=== PATIENT | male | born 1970 | race Caucasian/White ===

== ENCOUNTER 2024-03-12 19:01 | Emergency (ER) | payer OTHER, SELFPAY ==
--- NOTE | 2024-03-12 19:05 | ED.URI ---
HPI - URI/Sore Throat General Chief Complaint: Upper Respiratory Infection Stated Complaint: Sinus Time Seen by Provider: 03/12/24 19:43 Source: patient and RN notes reviewed Mode of arrival: ambulatory Limitations: no limitations History of Present Illness HPI Narrative: 54-year-old male with history of diabetes presents with concern for 4 day history of sore throat, cough, sneezing, headache, body aches. Reports symptoms started on Tuesday, he has not taken any medications for his symptoms. Reports right ear pain worse in the last 2 days. MD elicited complaint: cough and other (Ear pain) Related Data Home Medications Medication Instructions Recorded Confirmed ergocalciferol (vitamin D2) 1,250 50,000 unit PO WEEKLY 03/12/24 03/12/24 mcg (50,000 unit) capsule gabapentin 100 mg capsule 100 mg PO TID 03/12/24 03/12/24 metformin 1,000 mg tablet 1,000 mg PO BID 03/12/24 03/12/24 Allergies Allergy/AdvReac Type Severity Reaction Status Date / Time No Known Allergies Allergy Verified 03/12/24 19:24 Review of Systems Review of Systems: CONSTITUTIONAL: Reports malaise, chills. Denies fever. EYES: Denies visual changes, redness, or discharge. ENT: Reports otalgia and sore throat. CARDIOVASCULAR: Denies chest pain, palpitations, or edema. RESPIRATORY: Reports cough. Denies dyspnea. GASTROINTESTINAL: Denies abdominal pain, nausea, vomiting, diarrhea SKIN: Denies rash or itching. MUSCULOSKELETAL: Reports myalgia. NEUROLOGIC: Denies headache. All systems reviewed & are unremarkable except as noted in HPI and below PMFSH Comments At time of signature, agree with nursing past medical, surgical, social and family history. There is no relevant family history pertinent to the presenting complaint Exam Narrative: GENERAL: Nontoxic-appearing, well-nourished, and in no acute distress. HEAD: Normocephalic EYES: PERRLA, conjunctivae clear ENT: Nares clear. Mucous membranes moist. Left TM pearly yi with dull light reflex, right TM not fully visible due to excess cerumen, erythema visible; no tragal tenderness. Oropharynx not erythematous without lesions. Tonsils not enlarged and without exudate, no drooling, no hoarseness, no trismus, uvula midline. NECK: Supple. No lymphadenopathy CHEST: Clear to auscultation, breath sounds equal. No wheezing, rhonchi, rales, or stridor. No respiratory distress, speaks in full sentences. HEART: Regular rate and rhythm. No murmur heard. SKIN: Warm, dry, no rash. NEURO: Alert and oriented x3. PSYCH: Normal mood and affect Course Course Emergency Course: Patient is aware of diagnosis, understands and agrees to treatment plan. Anticipatory guidance given. Patient agrees to follow-up as directed and is aware of reasons to seek care at the emergency department. Portions of this record may have been created with voice recognition software Level of Care: Express Care Visit Vital Signs Vital signs: Reviewed. MDM - URI/Sore Throat MDM Narrative Medical decision making narrative: Differential diagnosis considered: Sanchez virus, strep pharyngitis, allergic rhinitis, upper respiratory tract infection, sinusitis, rhinosinusitis, nasopharyngitis. viral pharyngitis, otitis media, otitis externa, pneumonia, bronchitis, viral cough syndrome, viral syndrome, and influenza. Exam findings show no acute concerns or changes; patient is non-toxic appearing and is in no distress. Patient is appropriate for outpatient treatment and follow-up. Lab Data Attestation: I reviewed the patient's lab results. Critical Care Time Critical Care Time Critical Care Time: No Discharge Plan Discharge Clinical Impression: Otitis media, Cough Patient Disposition: Home, Self-Care Condition: Stable Instructions: Antibiotic Form, Ear Infection (ED) Additional Instructions: 1) Please follow-up with your primary care doctor in the next 1-2 days. 2) If you have any worsening of symptoms or any other urg
[2024-03-12 19:13] VITALS: BP 126/89; PULSE 101; RESP 20; TEMP 37; O2SAT 98
[2024-03-12 19:35] LABS: EDINFLUASCREEN Negative; EDINFLUBSCREEN Negative
[2024-03-12 19:49] LABS: EDSTREPNEGPOS1 Presumptive Negative
== END 2024-03-12 19:58 | disposition home or self-care (01) ==
PROVIDERS: Emergency Provider Nurse Practitioner; PCP Hospitalist
DX: H66.91 Otitis media, unspecified, right ear (principal); R05.9 Cough, unspecified; Z20.822 Contact with and (suspected) exposure to COVID-19
CPT/HCPCS: 87081; 87426; 87804; 87880; 99203; G0463

== ENCOUNTER 2024-03-17 14:35 | Emergency (ER) | payer OTHER, SELFPAY ==
--- NOTE | ~2024-03-17 | CT_ITS ---
EXAMINATION: CT brain wo con DATE: 03/17/2024 16:16 INDICATION: Dizziness for months TECHNIQUE: Computed tomography (CT) of the head was performed without intravenous contrast. The mA wa s adjusted according to patient size. Iterative reconstruction technique was employed. Exam dose: 60 5.33 mGy-cm total exam DLP. COMPARISON: 09/27/2017 CT brain FINDINGS: No intracranial mass lesion or hemorrhage or cerebrovascular accident, midline shift or mas s effect. Normal ventricular size. Normal yi-white matter differentiation. No subdural or epidural hematoma. The mastoid air cells and included paranasal sinuses are unremarkable. No fracture or bone destruction of the cranial vault. IMPRESSION: No significant abnormality Reviewed, dictated and finalized at [facility]. Reviewed, dictated and finalized at [facility]. IMPRESSION: No significant abnormality
--- NOTE | ~2024-03-17 | XR_ITS ---
XR chest 1V portable DATE: 03/17/2024 15:32 INDICATION: Dizziness, headaches, weakness TECHNIQUE: Portable AP chest on 03/17/2024 at 1532 hours COMPARISON: 09/11/2010 2 view chest FINDINGS: Normal heart size. No hilar or mediastinal enlargement. No pulmonary infiltrate or consolid ation, pleural effusion or pulmonary vascular congestion or pneumothorax is detected. Old healed posterolateral right sixth rib fracture. IMPRESSION: No active cardiopulmonary disease Reviewed, dictated and finalized at [facility].
[2024-03-17 14:40] VITALS: BP 103/62; PULSE 87; RESP 16; TEMP 36.4; O2SAT 96
[2024-03-17 15:00] VITALS: BP 138/89; PULSE 87; RESP 11; TEMP 36.7; O2SAT 98
[2024-03-17 15:05] VITALS: BP 110/76; BP 125/111; BP 138/89; PULSE 85; PULSE 92; PULSE 96
--- NOTE | 2024-03-17 15:13 | ECG_ITS ---
Test Date: 2024-03-17 15:17:15 Measurements Intervals [place] Rate: 84 P: 39 TN: 148 QRS: -12 QRSD: 82 T: 41 QT: 334 QTc: 396 Interpretive Statements SINUS RHYTHM LOW QRS VOLTAGE IN PRECORDIAL LEADS [QRS DEFLECTION < 1.0 mV IN CHEST LEADS] BORDERLINE ECG No previous ECG available for comparison Electronically Signed On 03-18-2024 08:38:27 CDT by Nimesh Haley M.D.
[2024-03-17] MEDS: SODIUM CHLORIDE 0.9% IV 1,000 ML 999 ML IV CONT ×2 (15:44→17:35)
[2024-03-17 15:53] LABS: Basophils Percent Auto 0.6 % (0.2-1.2); Eosinophils Absolute Auto 0.1 K/mm3 (0-0.3); Eosinophils Percent Auto 1.3 % (0-4.4); Hemoglobin 12.3 g/dL (14.0-18.0); Immature Granulocyte Absolute 0.02 K/mm3 (0.00-0.031); Immature Granulocyte Percent A 0.4 % (0-0.5); Lymphocytes Absolute Auto 1.17 K/mm3 (0.9-3.2); Lymphocytes Percent Auto 22.3 % (18.3-44.2); Mean Corpuscular HGB Conc 34.2 g/dl (32-36); Mean Corpuscular Volume 84.9 fl (80-100); Mean Platelet Volume 10.1 fl (7.4-10.4); Monocytes Absolute Auto 0.4 K/mm3 (0.1-0.6); Monocytes Percent Auto 7.3 % (2.6-8.5); Neutrophils Absolute Auto 3.6 K/mm3 (1.3-6.7); Neutrophils Percent Auto 68.1 % (45.5-73.1); Platelet Count Result 275 k/mm3 (150-375); Red Blood Count 4.24 M/mm3 (4.6-6.20); Red Cell Distribution Width 11.6 % (11.5-14.5); White Blood Count 5.2 K/mm3 (4.5-10.0)
[2024-03-17 16:09] LABS: Albumin Level 3.9 g/dL (3.5-5.1); Alkaline Phosphatase 97 U/L (38-126); Aspartate Amino Transferase 20 U/L (17-59)
[2024-03-17 16:11] LABS: Alanine Aminotransferase 11 U/L (6-50); Anion Gap 9 mmol/L (4-12); Bilirubin,Total 0.6 mg/dL (0.2-1.3); Blood Urea Nitrogen 26 mg/dL (9-20); Calcium 9.5 mg/dL (8.4-10.2); Carbon Dioxide 30 mmol/L (22-30); Chloride 95 mmol/L (98-107); Estimated CRCL calculation 80 ml/min; Estimated Glomerular Filt Rate > 60; Glucose 313 mg/dL (65-110); Magnesium 1.5 mg/dL (1.6-2.3); Potassium 4.5 mmol/L (3.4-5.0); Sodium 134 mmol/L (137-145)
[2024-03-17 16:15] LABS: Lactic Acid Reflex 0.8 mmol/L (0.7-2.0)
[2024-03-17 16:16] LABS: NT Pro B Type Natriuretic Pept < 20 pg/mL (19.9-100)
[2024-03-17 16:21] LABS: Troponin I < 0.012 ng/mL (0.000-0.034)
[2024-03-17 16:29] LABS: Influenza A QL RT-PCR Negative (Negative); Influenza B QL RT-PCR Negative (Negative); RSV RNA, RT-PCR Negative (Negative); SARS-CoV-2 RNA PCR Negative (Negative)
[2024-03-17] MEDS: MAGNESIUM SULF 2 GM/WATER 50ML 2 GM/50 ML BAG IVPB (16:41)
--- NOTE | 2024-03-17 16:56 | ED.GENADULT ---
HPI - General Adult General Chief complaint: Dizziness Stated complaint: weakness, tim, sob Time Seen by Provider: 03/17/24 15:15 History of Present Illness HPI narrative: patient a gentleman who presents emergency department chief complaint of weakness dizziness lightheadedness and headache. Patient reports he has history of diabetes and his blood sugars been in the 100 patient reports he was seen in urgent care recently and diagnosed with an ear infection patient reports since then he has been feeling lightheaded has had some dizziness feeling describes as rotation Related Data Home Medications Medication Instructions Recorded Confirmed ergocalciferol (vitamin D2) 1,250 50,000 unit PO WEEKLY 03/12/24 03/12/24 mcg (50,000 unit) capsule gabapentin 100 mg capsule 100 mg PO TID 03/12/24 03/12/24 metformin 1,000 mg tablet 1,000 mg PO BID 03/12/24 03/12/24 Allergies Allergy/AdvReac Type Severity Reaction Status Date / Time No Known Allergies Allergy Verified 03/17/24 15:10 Review of Systems Review of Systems: A 10 system review of systems was completed on the patient and is negative except for what is stated in the HPI. Nursing and ancillary documentation was reviewed. Exam Narrative: GENERAL: Well-appearing, well-nourished, and in no acute distress. HEAD: Normocephalic, atraumatic. EYES: PERRLA and EOMI. ENT: Nares clear, no rhinorrhea or epistaxis. Mucous membranes moist. NECK: Supple. CHEST: Clear to auscultation. No respiratory distress. HEART: Regular rate and rhythm. No murmur heard. Normal peripheral pulses. ABDOMEN: Soft, nontender, nondistended, normal active bowel sounds. EXTREMITIES: Normal range of motion. No edema. SKIN: Warm, dry, no rash. NEURO: No focal deficits. Alert and oriented x3. PSYCH: Normal mood and affect. Course Vital Signs Vital signs: Vital Signs Temperature 36.4 C 03/17/24 14:40 Pulse Rate 87 03/17/24 14:40 Respiratory Rate 16 03/17/24 14:40 Blood Pressure 103/62 03/17/24 14:40 Pulse Oximetry 96 03/17/24 14:40 Oxygen Delivery Room Air 03/17/24 14:40 Temperature 36.7 C 03/17/24 15:00 Pulse Rate 96 03/17/24 15:05 Respiratory Rate 11 L 03/17/24 15:00 Blood Pressure 125/111 H 03/17/24 15:05 Pulse Oximetry 98 03/17/24 15:00 Oxygen Delivery Room Air 03/17/24 14:40 Medical Decision Making [facility] Narrative Medical decision making narrative: differential diagnosis includes dehydration, electrolyte abnormality, hyperglycemia, DKA Dow's studies were obtained on the patient showed a sodium 134 CO2 the glucose was 313 the patient received 2 L of IV fluids and blood sugar has come down 09/02/2003 magnesium was 1.5 the patient received 2 g of magnesium troponin was negative procalcitonin is negative urinalysis showed 3+ glucose and 1+ ketone COVID flu and RSV were negative CT head was negative chest x-ray showed no focal infiltrate patient is feeling much better at this time Vital Signs Vital Signs: Vital Signs Temperature 36.4 C 03/17/24 14:40 Pulse Rate 87 03/17/24 14:40 Respiratory Rate 16 03/17/24 14:40 Blood Pressure 103/62 03/17/24 14:40 Pulse Oximetry 96 03/17/24 14:40 Oxygen Delivery Room Air 03/17/24 14:40 Temperature 36.7 C 03/17/24 15:00 Pulse Rate 96 03/17/24 15:05 Respiratory Rate 11 L 03/17/24 15:00 Blood Pressure 125/111 H 03/17/24 15:05 Pulse Oximetry 98 03/17/24 15:00 Oxygen Delivery Room Air 03/17/24 14:40 Lab Data 03/17/24 15:47 03/17/24 15:47 Labs: Lab Results 03/17/24 03/17/24 03/17/24 Range/Units 15:47 15:56 17:59 WBC 5.2 (4.5-10.0) K/mm3 RBC 4.24 L (4.6-6.20) M/mm3 Hgb 12.3 L (14.0-18.0) g/dL Hct 36.0 L (42.0-52.0) % MCV 84.9 (80-100) fl MCH 29.0 (26-34) pg MCHC 34.2 (32-36) g/dl RDW 11.6 (11.5-14.5) % Plt Count 275 (150-375) k/mm3 MPV 10.1 (7.
[2024-03-17 17:12] LABS: Procalcitonin 0.1 ng/mL
[2024-03-17 18:04] LABS: Glucose Point of Care 214 mg/dl (65-105)
[2024-03-17 18:12] LABS: Add Urine Microscopic? YES; Appearance Urine Clear (Clear); Bacteria Urine None Seen /hpf; Bilirubin Urine Negative (Negative); Blood Urine Negative (Negative); Color Urine Yellow (Yellow); Glucose Urine UA 3+ mg/dL (Negative); Ketones Urine 1+ mg/dL (Negative); Leukocyte Esterase Ur Negative LEU/UL (Negative); Nitrate Urine Negative (Negative); Non Pathogenic Casts 0-2; Protein Urine Trace mg/dL (Negative); RBC Urine 0-2 /hpf (0-2); Specific Grav Ur 1.027 (1.001-1.035); Squamous Epithelial Cell Urine None Seen /hpf (Few); Urobilinogen Urine 0.2 mg/dL (<2.0); WBC Urine 0-5 /hpf (0-3); pH Urine 5.5 (5.0-9.0)
[2024-03-17 18:59] LABS: Glucose Point of Care 204 mg/dl (65-105)
[2024-03-17 19:11] VITALS: BP 143/89; PULSE 76; RESP 18; O2SAT 99
== END 2024-03-17 19:13 | disposition home or self-care (01) ==
PROVIDERS: Emergency Provider Emergency Medicine
DX: E86.0 Dehydration (principal); E83.42 Hypomagnesemia; R73.9 Hyperglycemia, unspecified; Z20.822 Contact with and (suspected) exposure to COVID-19
CPT/HCPCS: 36415; 70450; 71045; 80053; 81001; 82948; 83605; 83735; 83880; 84145; 84484; 85025; 87637; 93005; 96361; 96365; 96366; 99284; J3475; J7030

== ENCOUNTER 2025-05-06 18:08 | Emergency (ER) | payer OTHER, SELFPAY ==
--- NOTE | ~2025-05-06 | XR_ITS ---
Examination: XR ankle LT min 3V Clinical History: LT ankle medial swelling and bruising, rolled yesterday Comparison: None Technique: 4 views left ankle Findings/impression: 1. Chronic avulsion fracture fragments along medial malleolus. Superimposed acute injury cannot be excluded. 2. Otherwise no acute fracture or dislocation left ankle. 3. Diffuse soft tissue swelling. Reviewed, dictated and finalized at location [facility].
[2025-05-06 18:19] VITALS: BP 129/79; PULSE 101; RESP 16; TEMP 36.7; O2SAT 98
--- NOTE | 2025-05-06 18:32 | ED.LOWEXIN ---
HPI - Extremity Injury (Lower) General Chief Complaint: Extremity Injury, Lower Stated Complaint: Fell down steps Time Seen by Provider: 05/06/25 18:32 Source: patient, RN notes reviewed and old records reviewed Mode of arrival: ambulatory Limitations: no limitations History of Present Illness HPI Narrative: 55-year-old male presents to the [facility] with significant swelling and medial bruising to the left ankle. States that he has a history of neuropathy denies any pain currently. No treatment prior to arrival. Patient states that he fell down a couple of steps rolling his ankle. Related Data Home Medications ?Medication ?Instructions ?Recorded ?Confirmed ?Last Taken ?Type ergocalciferol (vitamin D2) 1,250 50,000 unit PO WEEKLY 03/12/24 03/12/24 Unknown History mcg (50,000 unit) capsule gabapentin 100 mg capsule 100 mg PO TID 03/12/24 03/12/24 Unknown History metformin 1,000 mg tablet 1,000 mg PO BID 03/12/24 03/12/24 Unknown History Allergies Allergy/AdvReac Type Severity Reaction Status Date / Time No Known Allergies Allergy Verified 03/17/24 15:10 Review of Systems Review of Systems: All systems reviewed & are unremarkable except as noted in HPI and below Constitutional: Constitutional: Reports no additional constitutional complaints ENT: Reports system reviewed and no additional complaints, except as documented Cardiovascular: Cardiovascular: Reports no additional cardiovascular complaints, Denies chest pain and Denies dyspnea Respiratory: Respiratory: Reports no additional respiratory complaints, Denies chest congestion, Denies cough and Denies dyspnea Musculoskeletal: Musculoskeletal: Reports as per HPI Integumentary/Breasts: Skin/Breast: Reports system reviewed and no additional complaints, except as docu PMFSH Comments At the time of my signature, I reviewed and agree with the nursing past medical, surgical, social, and family history. There is no relevant family history pertinent to the patient complaint. Exam Const: General: cooperative, healthy appearing, comfortable, no acute distress, well developed, alert and well nourished Nutritional Appearance: well nourished Orientation/consciousness: patient oriented x3 Limitations: no limitations HENMT: Head: normal to inspection Eyes: General: appearance normal, both eyes and all related structures Alignment and Position: alignment normal Neck: Neck: normal visual inspection, full ROM, no lymphadenopathy and no meningeal signs Chest: Chest palpation & inspection: normal inspection of the chest Resp: Effort & Inspection: normal respiratory effort and able to speak in complete sentences Cardio: Rate: regular rate Skin: General skin exam: normal color and no rashes or lesions noted Neuro: General: patient oriented x3, gait normal, moves all extremities and no meningeal signs Cognition (Neuro): normal cognition Speech: normal speech Gait exam (Neuro): Normal gait present Extrem: General: normal to inspection, full ROM, capillary refill normal and normal gait Left lower extremity: knee Details: normal to inspection, lower leg Details: normal to inspection and ankle Details: swelling Details: diffusely, normal ROM and ecchymosis (Medial) Psych: Appearance: grossly normal and well kempt Mental Status: mental status grossly normal Speech and movement: Normal speech and movement present and Clear speech present Affect: normal affect Attitude: cooperative Course Course Level of Care: Express Care Visit Vital Signs Vital signs: Vital Signs Temperature 98.1 F 05/06/25 18:19 Pulse Rate 101 H 05/06/25 18:19 Respiratory Rate 16 05/06/25 18:19 Blood Pressure 129/79 05/06/25 18:19 Pulse Oximetry 98 05/06/25 18:19 Oxygen Delivery Room Air 05/06/25 18:19 Temperature 98.1 F 05/06/25 18:19 Pulse Rate 101 H 05/06/25 18:19 Respiratory Rate 16 05/06/25 18:19 Blood Pressure 129/79 05/06/25 18:19 Pulse Oximetry 98 05/06/25 18:19 Oxygen Delivery Room Air 05/06/25 18:19 Reviewed MDM - Extremity Injury (Lower) MDM Narrative Medical decision making narrative: Patient sitting in exam room. Patient is nontoxic, vitals stable. Patient presents with significant swelling, bruising to the medial aspect of the left ankle. X-ray shows chronic findings but cannot exclude acute fracture, splint placed, crutches given. Patient will follow-up with orthopedic. Discharge instructions reviewed with patient, as well as provided in writing per nursing staff. The instructions also include specific and strict return/GO TO THE ER as well as f/u information. All questions have been answered, and the patient deny any further questions with discharge and discharge plan. Some parts of this dictation were generated by voice recognition software and may contain typographical and/or grammatical inaccuracies. Differential Diagnosis Differential diagnosis: Likely ankle sprain and strain and ankle fracture Imaging Data Radiologist's impression: Examination: XR ankle LT min 3V Clinical History: LT ankle medial swelling and bruising, rolled yesterday Comparison: None Technique: 4 views left ankle Findings/impression: 1. Chronic avulsion fracture fragments along medial malleolus. Superimposed acute injury cannot be excluded. 2. Otherwise no acute fracture or dislocation left ankle. 3. Diffuse soft tissue swelling. Critical Care Time Critical Care Time Critical Care Time: No Discharge Plan Discharge Clinical Impression: Avulsion fracture of ankle Patient Disposition: Home Condition: Stable Instructions: Antibiotic Form, Avulsion Fracture (ED) Additional Instructions: Rest, ice and elevate every 2-3 hours for 15-20 minutes while awake. Alternate Motrin and Tylenol as needed for pain. Follow-up with orthopedist Follow-up with primary care provider this week Patient Language: Slovenian Prescriptions: No Action metformin 1,000 mg tablet 1,000 mg PO BID gabapentin 100 mg capsule 100 mg PO TID ergocalciferol (vitamin D2) 1,250 mcg (50,000 unit) capsule 50,000 unit PO WEEKLY magnesium oxide 400 mg magnesium tablet 400 mg PO BID Qty: 10 0RF Follow-up/Referrals: Guillermo Garza MD [Physician, Orthopedics] - 2 Days UNKNOWN,DOCTOR [Primary Care Provider] Stand Alone Forms: Work/School Release IP Time of Disposition: 19:41
== END 2025-05-06 20:03 | disposition home or self-care (01) ==
PROVIDERS: Emergency Provider Nurse Practitioner
DX: S82.52XA Displaced fracture of medial malleolus of left tibia, initial encounter for closed fracture (principal); W10.9XXA Fall (on) (from) unspecified stairs and steps, initial encounter; E11.42 Type 2 diabetes mellitus with diabetic polyneuropathy; Z79.84 Long term (current) use of oral hypoglycemic drugs; Z86.16 Personal history of COVID-19
CPT/HCPCS: 29515; 73610; 99214; G0463